=== PATIENT | male | born 1950 | race Two or more races ===

== ENCOUNTER 2024-12-11 14:06 | Inpatient (IN) | payer OTHER ==
[~2024-12-11] VITALS: Ht 165.1 cm; Wt 83.0 kg
[2024-12-11 15:54] LABS: PLATELET COUNT (AUTO) 379 K/uL (150-450); RED BLOOD CELL COUNT(AUTO) 4.99 MIL/uL (4.50-5.90); RED CELL DISTRIBUTION WIDTH 14.9 % (11.5-14.5); WHITE BLOOD COUNT (AUTO) 8.1 K/uL (4.5-11.0)
[2024-12-11 16:02] LABS: CALCIUM, TOTAL 9.0 mg/dL (8.8-10.5); CREATININE 1.07 mg/dL (0.60-1.30); GLOMERULAR FILTR. RATE CALC > 60 mL/min (>60); GLUCOSE,RANDOM 87 mg/dL (70-110); SODIUM SERUM 140 mmol/L (136-145); UREA NITROGEN, BLOOD 15 mg/dL (7-18)
[2024-12-11 16:08] LABS: CREATINE KINASE, TOTAL ONLY 122 U/L (39-308)
[2024-12-11 16:11] LABS: TROPONIN I-HIGH SENSITIVITY 6 ng/L (<76)
[2024-12-11 16:14] LABS: LACTIC ACID 1.2 mmol/L (0.4-2.0)
[2024-12-11] MEDS ORDERED: IPRATROPIUM BROMIDE 0.5 MG/2.5 ML NEB SOLUTION NEB PRN (16:30)
[2024-12-11] MEDS ORDERED: BISACODYL 10 MG RECTAL RECTAL SUPPOSITORY PR PRN (16:30)
[2024-12-11] MEDS ORDERED: ALBUTEROL SULFATE 2.5 MG/0.5 ML NEB SOLUTION NEB PRN (16:30)
[2024-12-11] MEDS ORDERED: ACETAMINOPHEN 325 MG TABLET PO PRN (16:30)
[2024-12-11] MEDS ORDERED: ZOLPIDEM TARTRATE 5 MG TABLET PO PRN (16:30)
[2024-12-11] MEDS ORDERED: MORPHINE SULFATE 2 MG/ML SYRINGE IVP PRN (16:30)
[2024-12-11] MEDS ORDERED: MAGNESIUM HYDROXIDE SUSPENSION 30 ML UDCUP PO PRN (16:30)
[2024-12-11] MEDS ORDERED: ONDANSETRON HCL 4 MG/2 ML VIAL IVP PRN (16:30)
[2024-12-11] MEDS ORDERED: OxyCODONE HCL/ACETAMINOPHEN 5-325 MG TABLET PO PRN (16:30)
[2024-12-11 17:10] LABS: APPEARANCE,URINE CLEAR (CLEAR); GLUCOSE, URINE (UA) NEGATIVE (NEGATIVE); LEUKOCYTE ESTERASE ,URINE NEGATIVE (NEGATIVE); NITRATE,URINE NEGATIVE (NEGATIVE); OCCULT BLOOD,URINE NEGATIVE (NEGATIVE); SPECIFIC GRAVITIY, URINE 1.011 (1.003-1.030)
[2024-12-12 00:05] VITALS: BP 146/75; PULSE 53; RESP 17; TEMP 98.2; O2SAT 99
[2024-12-12] MEDS: HEPARIN SODIUM,PORCINE 5,000 UNITS/ML VIAL SQ SCH (00:12)
[2024-12-12 04:25] VITALS: BP 142/75; PULSE 59; RESP 18; TEMP 97.7; O2SAT 98
[2024-12-12 08:07] VITALS: BP 152/93; PULSE 64; RESP 18; TEMP 97.7; O2SAT 98
[2024-12-12] MEDS: DOCUSATE SODIUM 100 MG/10 ML LIQUID UDCUP PO SCH (09:00)
[2024-12-12] MEDS: PANTOPRAZOLE SODIUM 40 MG/VIAL IVP SCH (09:40)
[2024-12-12 11:03] VITALS: BP 140/86; PULSE 62; RESP 19; TEMP 98; O2SAT 98
== END 2024-12-12 13:30 | DRG 305 ==
LOC: EMS 14:06 → EDH 22:58 → 5S 23:54
PROVIDERS: ADMIT Hospitalist; ATTEND Hospitalist
DX: I16.0 Hypertensive urgency (principal); E11.9 Type 2 diabetes mellitus without complications; I10 Essential (primary) hypertension; H53.8 Other visual disturbances; Z91.148 Patient's other noncompliance with medication regimen for other reason
CPT/HCPCS: 70450; 71045; 80048; 81003; 82550; 83605; 83880; 84484; 85025; 99285; J1644; J2470; 36415-L1; 36415-TC